=== PATIENT | female | born 1985 | race Caucasian/White ===

== ENCOUNTER 2021-10-25 14:56 | Emergency (ER) | payer BC ==
[2021-10-25 15:40] VITALS: TEMP 97.7
--- NOTE | 2021-10-25 16:12 | ED ---
General Adult HPI - General Chief complaint: Psychiatric Symptoms Stated complaint: Mental health eval Time Seen by Provider: 10/25/21 15:20 Source: patient, RN notes reviewed, old records reviewed Mode of arrival: ambulatory Limitations: no limitations - History of Present Illness Initial comments: This is a 36-year-old female who has been in multiple psychiatric facilities and ERs over the last month and a half. Approximately one half months ago the patient was having what appeared to be some manic episodes as well as some [place] interval is episodes so she was taken to Hospital in [place] and then she was put on some medications. Patient also has been to multiple ER visits now in [place] and was at one of the local psychiatric facilities and was put on another set of medications there and when that she went home she wasn't tolerating her Depakote so she stopped taking it and since then the family is taking her to [facility] and they wanted her to start taking some other medications which have yet to be ectopic by family. Family states that she is having these episodes of junaid where she is shaking and feels like she is crawling out of her skin and got to the point where they thought she needed to be evaluated again said get some consistent treatment. Patient has no physical complaints today. Patient was on Haldol up until yesterday and she did complain of feeling like her insides were all agitated and she couldn't stop it from feeling shaky. - Related Data Allergies Allergy/AdvReac Type Severity Reaction Status Date / Time No Known Allergies Allergy Verified 10/25/21 15:22 Review of Systems ROS Statement: Those systems with pertinent positive or pertinent negative responses have been documented in the HPI. ROS Other: All systems not noted in ROS Statement are negative. Past Medical History Past Medical History: No Reported History History of Any Multi-Drug Resistant Organisms: None Reported Past Surgical History: Hysterectomy Past Psychological History: Bipolar, Panic Disorder, PTSD Smoking Status: Current every day smoker Past Alcohol Use History: Daily Past Drug Use History: None Reported General Exam - General Exam Comments Initial Comments: GENERAL: Patient is well-developed and well-nourished. Patient is nontoxic and well- hydrated and is in no acute distress. ENT: Neck is soft and supple. No significant lymphadenopathy is noted. Oropharynx is clear. Moist mucous membranes. Neck has full range of motion without eliciting any pain. EYES: The sclera were anicteric and conjunctiva were pink and moist. Extraocular movements were intact and pupils were equal round and reactive to light. Eyelids were unremarkable. PULMONARY: Unlabored respirations. Good breath sounds bilaterally. No audible rales rhonchi or wheezing was noted. CARDIOVASCULAR: There is a regular rate and rhythm without any murmurs gallops or rubs. ABDOMEN: Soft and nontender with normal bowel sounds. SKIN: Skin is clear with no lesions or rashes and otherwise unremarkable. NEUROLOGIC: Patient is alert and oriented x3. Cranial nerves II through XII are grossly intact. Motor and sensory are also intact. Normal speech, volume and content. Symmetrical smile. MUSCULOSKELETAL: Normal extremities with adequate strength and full range of motion. No lower extremity swelling or edema. No calf tenderness. LYMPHATICS: No significant lymphadenopathy is noted PSYCHIATRIC: Normal psychiatric evaluation. She currently feels very calm and has no paranoid thoughts at this time. Limitations: no limitations Course Vital Signs 10/25/21 15:18 Temperature 97.7 F Pulse Rate 111 H Respiratory 20 Rate Blood Pressure 113/79 O2 Sat by Pulse 99 Oximetry Medical Decision Making - Medical Decision Making EPS came down to evaluate the patient and determined the patient could follow-up with her own psychiatrist for which she already has an appointment. Patient herself or family did not tell me she was transferred male taking a variety of hormones in an effort to become male. - Lab Data Lab Results 10/25/21 Range/Units 16:39 Urine Opiates Screen Not Detected (NotDetected) Ur Oxycodone Screen Not Detected (NotDetected) Urine Methadone Screen Not Detected (NotDetected) Ur Propoxyphene Screen Not Detected (NotDetected) Ur Barbiturates Screen Not Detected (NotDetected) U Tricyclic Antidepress Not Detected (NotDetected) Ur Phencyclidine Scrn Not Detected (NotDetected) Ur Amphetamines Screen Not Detected (NotDetected) U Methamphetamines Scrn Not Detected (NotDetected) U Benzodiazepines Scrn Detected H (NotDetected) Urine Cocaine Screen Not Detected (NotDetected) U Marijuana (THC) Screen Not Detected (NotDetected) Disposition Clinical Impression: Psychosis Disposition: HOME SELF-CARE Instructions (If sedation given, give patient instructions): Psychotic Disorder (ED) Is patient prescribed a controlled substance at d/c from ED?: No Referrals: Nonstaff,Physician [Primary Care Provider] - 1-2 days Time of Disposition: 18:00
[2021-10-25 17:01] LABS: Amphetamine Screen,Urine Not Detected (NotDetected); Barbiturate Screen,Urine Not Detected (NotDetected); Benzodiazepines Screen,Urine Detected (NotDetected); Cocaine Screen,Urine Not Detected (NotDetected); Methadone Screen, Urine Not Detected (NotDetected); Opiate Screen,Urine Not Detected (NotDetected); Oxycodone Screen, Urine Not Detected (NotDetected); Phencyclidine Screen,Urine Not Detected (NotDetected); Tricyclic Antidepressant,Urine Not Detected (NotDetected); Urn Cannabinoid Scrn Not Detected (NotDetected)
[2021-10-25 18:44] VITALS: BP 115/80; PULSE 90; RESP 18
== END 2021-10-25 18:46 | disposition home or self-care (01) ==
LOC: EC 14:56
DX: F29 Unspecified psychosis not due to a substance or known physiological condition (principal); F17.200 Nicotine dependence, unspecified, uncomplicated
CPT/HCPCS: 80306; 82075; 99284

== ENCOUNTER → 2021-11-08 | Outpatient (CLI) | payer BC ==
--- NOTE | 2021-11-08 14:12 | MM ---
Reason for Exam: Clinical finding. Baseline mammogram. Indicated Problems: Large axillary lymph nodes of the right side for 2 Year(s). Patient History: Menarche at age 14. Patient has no children. Left ovary removed at age 34. Right ovary removed at age 26. Hysterectomy at age 34. Postmenopausal. Currently using Estrogen, starting at age 34. Risk Values: Sharmila 5 year model risk: 0.3%. NCI Lifetime model risk: 11.3%. Prior Study Comparison: Patient's first Mammogram. Tissue Density: The breast tissue is extremely dense which could obscure a lesion on mammography. Findings: Analyzed By CAD. Prominent but benign-appearing bilateral axillary lymph nodes are partially imaged. No suspicious new mass or distortion in either breast. Overall Assessment: Negative, BI-RAD 1 Management: Diagnostic Breast Ultrasound of both breasts. Targeted ultrasound bilateral axilla has been ordered. Results were given to the patient verbally at the time of exam. Electronically signed and approved by: Andrew Robertson M.D.
== END | disposition home or self-care (01) ==
LOC: RADMAMWWP 13:12
DX: R92.8 Other abnormal and inconclusive findings on diagnostic imaging of breast (principal); Z78.0 Asymptomatic menopausal state
CPT/HCPCS: 77066

== ENCOUNTER 2021-11-09 19:33 | Inpatient (IN) | payer BC ==
--- NOTE | 2021-11-09 20:14 | ED ---
General Adult HPI - General Source: patient, RN notes reviewed, old records reviewed Mode of arrival: ambulatory Limitations: no limitations <Ryan Varela - Last Filed: 11/09/21 20:11> <Romain Thakur - Last Filed: 11/09/21 23:43> - General Chief complaint: Psychiatric Symptoms Stated complaint: Mental Health Time Seen by Provider: 11/09/21 19:56 - History of Present Illness Initial comments: 36-year-old female presenting for psychiatric evaluation. Patient has history of bipolar with psychotic features. She apparently has not been sleeping over the past 4 days. She had recent psychiatric evaluation. She is presenting today with her family members who state that she's not been sleeping she has been paranoid. She denies suicidal or homicidal ideation. She does admit to marijuana use today and admits to recent use of mushrooms although this was about 2 weeks prior. (Ryan Varela) - Related Data Allergies Allergy/AdvReac Type Severity Reaction Status Date / Time No Known Allergies Allergy Verified 11/09/21 20:32 Review of Systems ROS Other: All systems not noted in ROS Statement are negative. <Ryan Varela - Last Filed: 11/09/21 20:11> ROS Other: All systems not noted in ROS Statement are negative. <Romain Thakur - Last Filed: 11/09/21 23:43> ROS Statement: Those systems with pertinent positive or pertinent negative responses have been documented in the HPI. Past Medical History Past Medical History: No Reported History History of Any Multi-Drug Resistant Organisms: None Reported Past Surgical History: Hysterectomy Additional Past Surgical History / Comment(s): hormone replacement Past Psychological History: Bipolar, Panic Disorder, PTSD Smoking Status: Current every day smoker Past Alcohol Use History: Daily Past Drug Use History: Marijuana <Ryan Varela - Last Filed: 11/09/21 20:11> General Exam Limitations: no limitations General appearance: alert, in no apparent distress, anxious Head exam: Present: atraumatic, normocephalic Eye exam: Present: normal appearance, PERRL ENT exam: Present: mucous membranes dry Respiratory exam: Present: normal lung sounds bilaterally. Absent: respiratory distress, wheezes Cardiovascular Exam: Present: regular rate, normal rhythm GI/Abdominal exam: Present: soft. Absent: distended, tenderness, guarding Extremities exam: Present: normal inspection, normal capillary refill. Absent: pedal edema Neurological exam: Present: alert, oriented X3. Absent: motor sensory deficit Psychiatric exam: Absent: homicidal ideation, suicidal ideation Skin exam: Present: warm, dry, intact <Ryan Varela - Last Filed: 11/09/21 20:11> Course <Ryan Varela - Last Filed: 11/09/21 20:11> Vital Signs 11/09/21 19:50 Temperature 98.4 F Pulse Rate 97 Respiratory 17 Rate Blood Pressure 112/79 O2 Sat by Pulse 100 Oximetry - Reevaluation(s) Reevaluation #1: 11/09/21 20:12 Patient cleared for EPS. (Ryan Varela) Reevaluation #2: 11/09/21 2100 Care signed out at shift change, Dr. Thakur , awaiting EPS evaluation. (Ryan Varela) Medical Decision Making - Lab Data Result diagrams: 11/09/21 22:18 11/09/21 22:18 <Romain Thakur - Last Filed: 11/09/21 23:43> - Medical Decision Making Patient is signed out to me by previous shift physician, Dr. Monte. Briefly, patient 36-year-old female showing signs of psychosis per she is brought to the ER for mental health evaluation. Patient was cleared by previous shift physician. Plan at sign out was to follow-up with EPS evaluation. EPS recommended inpatient psychiatric admission. Certification completed. Patient be admitted to [address]. (Romain Thakur) - Lab Data Lab Results 11/09/21 11/09/21 11/09/21 Range/Units 22:18 22:18 22:18 WBC 10.4 (3.8-10.6) k/uL RBC 3.97 (3.80-5.40) m/uL Hgb 12.3 (11.4-16.0) gm/dL Hct 37.1 (34.0-46.0) % MCV 93.4 (80.0-100.0) fL MCH 30.9 (25.0-35.0) pg MCHC 33.0 (31.0-37.0) g/dL RDW 12.8 (11.5-15.5) % Plt Count 206 (150-450) k/uL MPV 8.6 Neutrophils % 77 % Lymphocytes % 16 % Monocytes % 5 % Eosinophils % 0 % Basophils % 0 % Neutrophils # 8.0 H (1.3-7.7) k/uL Lymphocytes # 1.6 (1.0-4.8) k/uL Monocytes # 0.5 (0-1.0) k/uL Eosinophils # 0.0 (0-0.7) k/uL Basophils # 0.0 (0-0.2) k/uL Sodium 138 (137-145) mmol/L Potassium 3.5 (3.5-5.1) mmol/L Chloride 107 (98-107) mmol/L Carbon Dioxide 26 (22-30) mmol/L Anion Gap 5 mmol/L BUN 8 (7-17) mg/dL Creatinine 0.68 (0.52-1.04) mg/dL Est GFR (CKD-EPI)AfAm >90 (>60 ml/min/1.73 sqM) Est GFR (CKD-EPI)NonAf >90 (>60 ml/min/1.73 sqM) Glucose 112 H (74-99) mg/dL Calcium 9.8 (8.4-10.2) mg/dL Total Bilirubin 0.4 (0.2-1.3) mg/dL AST 17 (14-36) U/L ALT 11 (4-34) U/L Alkaline Phosphatase 41 (38-126) U/L Total Protein 6.4 (6.3-8.2) g/dL Albumin 4.2 (3.5-5.0) g/dL Urine Color Urine Appearance (Clear) Urine pH (5.0-8.0) Ur Specific [place] (1.001-1.035) Urine Protein (Negative) Urine Glucose (UA) (Negative) Urine Ketones (Negative) Urine Blood (Negative) Urine Nitrite (Negative) Urine Bilirubin (Negative) Urine Urobilinogen (<2.0) mg/dL Ur Leukocyte Esterase (Negative) Urine HCG, Qual (Not Detectd) Urine Opiates Screen Not Detected (NotDetected) Ur Oxycodone Screen Not Detected (NotDetected) Urine Methadone Screen Not Detected (NotDetected) Ur Propoxyphene Screen Not Detected (NotDetected) Ur Barbiturates Screen Not Detected (NotDetected) U Tricyclic Antidepress Not Detected (NotDetected) Ur Phencyclidine Scrn Not Detected (NotDetected) Ur Amphetamines Screen Not Detected (NotDetected) U Methamphetamines Scrn Not Detected (NotDetected) U Benzodiazepines Scrn Detected H (NotDetected) Urine Cocaine Screen Not Detected (NotDetected) U Marijuana (THC) Screen Not Detected (NotDetected) 11/09/21 11/09/21 Range/Units 22:18 22:18 WBC (3.8-10.6) k/uL RBC (3.80-5.40) m/uL Hgb (11.4-16.0) gm/dL Hct (34.0-46.0) % MCV (80.0-100.0) fL MCH (25.0-35.0) pg MCHC (31.0-37.0) g/dL RDW (11.5-15.5) % Plt Count (150-450) k/uL MPV Neutrophils % % Lymphocytes % % Monocytes % % Eosinophils % % Basophils % % Neutrophils # (1.3-7.7) k/uL Lymphocytes # (1.0-4.8) k/uL Monocytes # (0-1.0) k/uL Eosinophils # (0-0.7) k/uL Basophils # (0-0.2) k/uL Sodium (137-145) mmol/L Potassium (3.5-5.1) mmol/L Chloride (98-107) mmol/L Carbon Dioxide (22-30) mmol/L Anion Gap mmol/L BUN (7-17) mg/dL Creatinine (0.52-1.04) mg/dL Est GFR (CKD-EPI)AfAm (>60 ml/min/1.73 sqM) Est GFR (CKD-EPI)NonAf (>60 ml/min/1.73 sqM) Glucose (74-99) mg/dL Calcium (8.4-10.2) mg/dL Total Bilirubin (0.2-1.3) mg/dL AST (14-36) U/L ALT (4-34) U/L Alkaline Phosphatase (38-126) U/L Total Protein (6.3-8.2) g/dL Albumin (3.5-5.0) g/dL Urine Color Colorless Urine Appearance Clear (Clear) Urine pH 6.0 (5.0-8.0) Ur Specific [place] 1.004 (1.001-1.035) Urine Protein Negative (Negative) Urine Glucose (UA) Negative (Negative) Urine Ketones Negative (Negative) Urine Blood Negative (Negative) Urine Nitrite Negative (Negative) Urine Bilirubin Negative (Negative) Urine Urobilinogen <2.0 (<2.0) mg/dL Ur Leukocyte Esterase Negative (Negative) Urine HCG, Qual Not Detected (Not Detectd) Urine Opiates Screen (NotDetected) Ur Oxycodone Screen (NotDetected) Urine Methadone Screen (NotDetected) Ur Propoxyphene Screen (NotDetected) Ur Barbiturates Screen (NotDetected) U Tricyclic Antidepress (NotDetected) Ur Phencyclidine Scrn (NotDetected) Ur Amphetamines Screen (NotDetected) U Methamphetamines Scrn (NotDetected) U Benzodiazepines Scrn (NotDetected) Urine Cocaine Screen (NotDetected) U Marijuana (THC) Screen (NotDetected) Disposition <Ryan Varela - Last Filed: 11/09/21 20:11> <Romain Thakur - Last Filed: 11/09/21 23:43> Clinical Impression: Psychosis Disposition: ADMITTED IP TO THIS [facility] Condition: Fair Referrals: None,Stated [Primary Care Provider] - 1-2 days
[2021-11-09] MEDS ORDERED: IBUPROFEN 600 MG TAB PO STA (20:27)
[2021-11-09] MEDS ORDERED: LORazepam 2 MG/ML INJ IM STA (22:21)
[2021-11-09 23:03] LABS: Appearance,Urine Clear (Clear); Bilirubin,Urine Negative (Negative); Blood,Urine Negative (Negative); Color,Urine Colorless; Glucose,Urine (UA) Negative (Negative); Ketones,Urine Negative (Negative); Leukocyte Esterase,Urine Negative (Negative); Nitrite,Urine Negative (Negative); Protein,Urine Negative (Negative); Specific Gravity,Urine 1.004 (1.001-1.035); Urobilinogen,Urine <2.0 mg/dL (<2.0)
[2021-11-09 23:17] LABS: Basophils % (A) 0 %; Eosinophils % (A) 0 %; HCT 37.1 % (34.0-46.0); HGB 12.3 gm/dL (11.4-16.0); Lymphocytes # (A) 1.6 k/uL (1.0-4.8); Lymphocytes % (A) 16 %; MCH 30.9 pg (25.0-35.0); MCV 93.4 fL (80.0-100.0); Mean Platelet Volume 8.6; Monocytes # (A) 0.5 k/uL (0-1.0); Monocytes % (A) 5 %; Neutrophils % (A) 77 %; Platelet Count 206 k/uL (150-450); RBC 3.97 m/uL (3.80-5.40); RDW 12.8 % (11.5-15.5); WBC 10.4 k/uL (3.8-10.6)
[2021-11-09 23:19] LABS: Amphetamine Screen,Urine Not Detected (NotDetected); Cocaine Screen,Urine Not Detected (NotDetected); Opiate Screen,Urine Not Detected (NotDetected); Phencyclidine Screen,Urine Not Detected (NotDetected)
[2021-11-09 23:20] LABS: Barbiturate Screen,Urine Not Detected (NotDetected); Benzodiazepines Screen,Urine Detected (NotDetected); Methadone Screen, Urine Not Detected (NotDetected); Oxycodone Screen, Urine Not Detected (NotDetected); Tricyclic Antidepressant,Urine Not Detected (NotDetected); Urn Cannabinoid Scrn Not Detected (NotDetected)
[2021-11-09 23:27] LABS: ALT 11 U/L (4-34); AST 17 U/L (14-36); African American GFR (CKD) >90 (>60 ml/min/1.73 sqM); Albumin 4.2 g/dL (3.5-5.0); Alkaline Phosphatase 41 U/L (38-126); Anion Gap 5 mmol/L; Blood Urea Nitrogen 8 mg/dL (7-17); Calcium 9.8 mg/dL (8.4-10.2); Carbon Dioxide 26 mmol/L (22-30); Chloride 107 mmol/L (98-107); Glucose 112 mg/dL (74-99); Non-African American GFR(CKD) >90 (>60 ml/min/1.73 sqM); Potassium 3.5 mmol/L (3.5-5.1); Sodium 138 mmol/L (137-145); Total Bilirubin 0.4 mg/dL (0.2-1.3); Total Protein 6.4 g/dL (6.3-8.2)
[2021-11-10] MEDS ORDERED: MAG HYDROX/AL HYDROX/SIMETH 30 ML CUP PO PRN (00:26)
[2021-11-10] MEDS ORDERED: LORazepam 1 MG TAB PO PRN (00:26)
[2021-11-10] MEDS ORDERED: HALOPERIDOL LACTATE 5 MG/ML 1 ML VIAL IM PRN (00:26)
[2021-11-10] MEDS ORDERED: MAGNESIUM HYDROXIDE 2,400 MG/10 ML CUP PO PRN (00:26)
[2021-11-10] MEDS ORDERED: LORazepam 2 MG/ML INJ IM PRN (00:30)
[2021-11-10] MEDS ORDERED: haloperidoL 5 MG TAB PO PRN (00:31)
[2021-11-10] MEDS: ACETAMINOPHEN TAB 325 MG TAB PO PRN ×2 (02:39→23:40)
--- NOTE | 2021-11-10 02:59 | P.PN ---
Progress Note - Text Progress Note Date: 11/10/21 Patient is aggressive and uncooperative
--- NOTE | 2021-11-10 03:11 | XR ---
EXAMINATION TYPE: XR elbow limited RT DATE OF EXAM: 11/10/2021 COMPARISON: NONE HISTORY: Fall. Pain TECHNIQUE: 2 views FINDINGS: Elbow joint is intact. No fracture nor dislocation. There is no sign of joint effusion. IMPRESSION: Negative right elbow exam
--- NOTE | 2021-11-10 03:12 | XR ---
EXAMINATION TYPE: XR knee limited LT DATE OF EXAM: 11/10/2021 COMPARISON: NONE HISTORY: Fall. Pain TECHNIQUE: 2 views FINDINGS: I see no fracture nor dislocation. Joint spaces are normal. No sign of knee joint effusion. IMPRESSION: Negative left knee exam.
[2021-11-10] MEDS ORDERED: LEVOTHYROXINE SODIUM 137 MCG PO SCH (09:00)
[2021-11-10 11:11] LABS: HDL Cholesterol 58.3 mg/dL (40.00-60.00); Triglycerides 39.4 mg/dL (0.00-149.00)
[2021-11-10] MEDS: LEVOTHYROXINE 137 MCG TAB PO SCH (12:46)
[2021-11-10] MEDS: lamoTRIgine 25 MG TAB PO SCH (12:46)
[2021-11-10] MEDS: NICOTINE 14MG/24HR PATCH TRANSDERM SCH (12:47)
[2021-11-10 17:40] LABS: Urine Alcohol Negative (Negative); Urine Barbiturate Negative (Negative); Urine Cocaine Negative (Negative); Urine Methadone Negative (Negative); Urine Opiates Negative (Negative); Urine Phencyclidine Negative (Negative)
[2021-11-10] MEDS ORDERED: traZODone HCL 50 MG TAB PO PRN (19:43)
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
[2021-11-10] MEDS ORDERED: QUEtiapine 50 MG TAB PO SCH (21:00)
[2021-11-10] MEDS ORDERED: ESCITALOPRAM 10 MG TAB PO SCH (21:00)
[2021-11-10] MEDS ORDERED: traZODone HCL 50 MG TAB PO SCH (21:00)
[2021-11-11 06:51] VITALS: TEMP 98.1
[2021-11-11] MEDS: lamoTRIgine 25 MG TAB PO SCH (08:04)
[2021-11-11] MEDS: LEVOTHYROXINE 137 MCG TAB PO SCH (08:04)
[2021-11-11] MEDS: NICOTINE 14MG/24HR PATCH TRANSDERM SCH (08:04)
[2021-11-11] MEDS ORDERED: LORazepam 2 MG/ML INJ IM STA ×3 (10:10→10:24)
[2021-11-11] MEDS ORDERED: LORazepam 2 MG/ML INJ ONE ×2 (10:12→10:22)
[2021-11-11] MEDS ORDERED: HALOPERIDOL LACTATE 5 MG/ML 1 ML VIAL ONE (10:31)
[2021-11-11] MEDS ORDERED: HALOPERIDOL LACTATE 5 MG/ML 1 ML VIAL IM STA (10:35)
[2021-11-11 11:05] VITALS: BP 138/89; PULSE 109; RESP 18
[2021-11-11 14:27] LABS: Thyroid Peroxidase Antibodies 50.8 U/mL (0.0-33.0)
--- NOTE | 2021-11-11 17:25 | P.DS ---
Providers Date of admission: 11/10/21 00:23 Expected date of discharge: 11/11/21 Attending physician: Glynn Gar MD Consults: 11/10/21 00:26 Consult Physician Routine Consulting Provider: Effie Diaz Consult Reason/Comments: H&P for mental health admission. Do you want consulting provider notified?: Yes Primary care physician: Stated None Hospital Course: Hospital Course: Jeff Ramon is a 36 yo female with history of depression, anxiety, bipolar, psychosis, and Katja's thyroiditis who was admitted to the MHU due to psychosis. Patient reports no prior psychiatric hospitalizations until September 2021 when she started having symptoms of junaid and psychosis, and has been admitted to inpatient psychiatry multiple times since September 2021. The history she provided on admission was consistent with major depressive disorder with concern for psychotic features and generalized anxiety disorder, and she was started on Lexapro 10 mg daily which she reports having well done on previously and also Seroquel 50 mg QHS for mood/psychosis/sleep. She was continued on her home Lamictal 25 mg daily. Anti-TPO and anti-thyroglobulin labs were added onto her labs this morning by calling the lab directly due to her history of Katja's. On assessment today, patient reports feeling warm, flushed, lightheaded, reported feeling like she may be having a "thyroid storm", began rambling including some paranoid thought content, laid herself on the floor where she had shaking spells. She was given Ativan 1 mg IM x1 with minimal benefit. A-team and medical doctor were called, and patient was moved to a stretcher where she appeared to have another shaking spell and was given another dose of Ativan 1 mg IM x 1. She continued to thrash in the stretcher and was given Haldol 5 mg IM x 1. She was transferred to the medical floor for evaluation of possible seizures and rule out underlying medical cause for her psychosis (ie Katja's). Mental status exam: General Appearance: Patient appears to be stated age, is dressed in casual attire, appears warm, flushed, anxious. Behavior: Patient laid herself on the floor where she had several shaking spells. Speech: Patient's speech is rambling but non-pressured. Mood/Affect: Patient reports mood is "anxious", affect is congruent. Suicidality/Homicidality: Patient denies having any suicidal or homicidal tiffany ation intent or plan. Perceptions: Patient reports auditory and visual hallucinations today, which she denied yesterday. Though process: Rambling Thought content: Making inappropriate sexual comments at times, rambling concerns about brain tumor and brain bleed. Memory and concentration: AOX3, grossly intact Judgment and insight: impaired Impression: Unspecified mood disorder, MDD vs Bipolar disorder Unspecified psychotic disorder, rule out psychosis due to underlying medical condition (ie Katja's) Unspecified anxiety disorder Rule out personality disorder Shaking spells Plan: -Patient transferred to medical floor for neurological evaluation and treatment of shaking spells and possible underlying medical cause of psychosis and mood symptoms. -Head CT and EEG would be helpful in ruling out structural/medical causes of her symptoms. -Anti-TPO and Anti-thyroglobulin levels were requested from the lab today and are pending. -Hold Lexapro and Seroquel (started last night) for now. Need for psychotropic medications will be re-evaluated once more test results are available. -Haldol and Ativan as needed for agitation. -Initiate sitter at bedside if safety concerns arise. -Psychiatry will continue to follow along. -Please do not discharge patient without further discussion with psychiatry since patient may require re-admission to the mental health unit when medically stable and a psychiatric bed is available. Patient Condition at Discharge: Poor Plan - Discharge Summary New Discharge Prescriptions: No Action lamoTRIgine [LaMICtal] 25 mg PO DAILY LORazepam [Ativan] 0.25 mg PO ONCE PRN PRN Reason: Anxiety estradioL [estradioL (Once Weekly) 0.05 mg Patch] 1 patch TRANSDERM SA Testosterone Micro Pwd 1 applic TOPICAL DAILY Ibuprofen [Motrin Ib] 200 mg PO Q8H PRN PRN Reason: Pain Or Fever > 100.5 traZODone HCL [Desyrel] 100 mg PO HS Levothyroxine Sodium [Tirosint] 137 mcg PO DAILY ALPRAZolam [Xanax] 0.25 mg PO DAILY PRN PRN Reason: Anxiety Discharge Medication List ALPRAZolam [Xanax] 0.25 mg PO DAILY PRN 11/09/21 [History] Ibuprofen [Motrin Ib] 200 mg PO Q8H PRN 11/09/21 [History] LORazepam [Ativan] 0.25 mg PO ONCE PRN 11/09/21 [History] Levothyroxine Sodium [Tirosint] 137 mcg PO DAILY 11/09/21 [History] Testosterone Micro Pwd 1 applic TOPICAL DAILY 11/09/21 [History] estradioL [estradioL (Once Weekly) 0.05 mg Patch] 1 patch TRANSDERM SA 11/09/21 [History] lamoTRIgine [LaMICtal] 25 mg PO DAILY 11/09/21 [History] traZODone HCL [Desyrel] 100 mg PO HS 11/09/21 [History] Follow up Appointment(s)/Referral(s): None,Stated [Primary Care Provider] - 1-2 days Activity/Diet/Wound Care/Special Instructions: Avoid the use of street drugs and alcohol. Take all prescriptions as prescribed. When you are in need of refills on your medications, please contact your medical provider and/or outpatient psychiatrist to have this done. Please go to scheduled outpatient appointment for aftercare treatment. If symptoms return or become worse, call the crisis line at and/or go to the nearest emergency room for evaluation. Discharge Disposition: ADMITTED IP TO THIS HOSP
[2021-11-16] MEDS ORDERED: ESTRADIOL TRANSDERM SCH (00:32)
== END 2021-11-11 10:38 | disposition other institution (70) | DRG 885 ==
LOC: EC 19:33 → 3MHU 11-10 00:23
PROVIDERS: ADMIT Psychiatry & Neurology Psychiatry; ATTEND Psychiatry & Neurology Psychiatry
DX: F29 Unspecified psychosis not due to a substance or known physiological condition (principal); R45.851 Suicidal ideations; E06.3 Autoimmune thyroiditis; F17.210 Nicotine dependence, cigarettes, uncomplicated; F31.9 Bipolar disorder, unspecified; F41.0 Panic disorder [episodic paroxysmal anxiety]; F41.1 Generalized anxiety disorder; F43.10 Post-traumatic stress disorder, unspecified; N95.1 Menopausal and female climacteric states; Z79.890 Hormone replacement therapy; Z79.899 Other long term (current) drug therapy; Z86.16 Personal history of COVID-19; Z90.710 Acquired absence of both cervix and uterus
CPT/HCPCS: 36415; 80053; 80061; 80306; 81003; 81025; 83036; 83721; 84443; 85025; 86376; 86800; 87635; 96372; 99285

== ENCOUNTER 2021-11-11 10:55 | Inpatient (IN) | payer BC ==
[2021-11-11] MEDS ORDERED: ACETAMINOPHEN TAB 325 MG TAB PO PRN (11:00)
[2021-11-11] MEDS ORDERED: MELATONIN 3 MG TABLET PO PRN (11:00)
[2021-11-11] MEDS ORDERED: NALOXONE 0.4 MG/ML 1 ML VIAL IV PRN (11:00)
[2021-11-11] MEDS ORDERED: LORazepam 2 MG/ML INJ IV PRN (11:00)
[2021-11-11] MEDS ORDERED: CALCIUM CARBONATE 500 MG CHEWABLE PO PRN (11:00)
[2021-11-11] MEDS ORDERED: ONDANSETRON 4 MG/2 ML VIAL IVP PRN (11:00)
[2021-11-11] MEDS ORDERED: HALOPERIDOL LACTATE 5 MG/ML 1 ML VIAL IVP PRN (11:10)
--- NOTE | 2021-11-11 12:50 | P.HPIM ---
History of Present Illness H&P Date: 11/11/21 Chief Complaint: Agitations 36-year-old female with major depressive disorder, bipolar, anxiety, tobacco use who was initially admitted to the mental health unit on 11/10/2021 secondary to aggressive behavior. Today 11/11/2021 a rapid response was called on the mental health unit as the patient was having a seizure-like activity. I was the covering provider for cross cover. I evaluated the patient and the mental health unit. The patient was awake and oriented and she knew where she was. She was having uncontrolled body movements and shaking activity every several minutes but she was fully awake and oriented with them. She had 2 doses of 1 mg IV Ativan a total of 2 mg was given IM. Then she started to have another episode of shaking again she was fully awake during the episode. She was given 1 dose of Haldol injection 5 mg IM. The patient was resting after that. The nursing staff requested for the patient to be moved out of the mental health unit due to medical instability. She was moved. Her vital signs were normal. She was oxygenating very well as she was protecting her airways and she did not require intubation. The patient will be seen by medical team and neurology until cleared medically to go back to the mental health unit. Review of Systems Constitutional: Reports as per HPI Past Medical History Past Medical History: No Reported History Additional Past Medical History / Comment(s): Anxiety, major depression. Bipolar disorder. Thyroid disorder. Tobacco use disorder History of Any Multi-Drug Resistant Organisms: None Reported Past Surgical History: Hysterectomy Additional Past Surgical History / Comment(s): hormone replacement Past Anesthesia/Blood Transfusion Reactions: No Reported Reaction Past Psychological History: Bipolar, Panic Disorder, PTSD Smoking Status: Current every day smoker Past Alcohol Use History: Daily Past Drug Use History: Marijuana Medications and Allergies Home Medications Medication Instructions Recorded Confirmed Type ALPRAZolam [Xanax] 0.25 mg PO DAILY PRN 11/09/21 11/11/21 History Ibuprofen [Motrin Ib] 200 mg PO Q8H PRN 11/09/21 11/11/21 History LORazepam [Ativan] 0.25 mg PO ONCE PRN 11/09/21 11/11/21 History Levothyroxine Sodium [Tirosint] 137 mcg PO DAILY 11/09/21 11/11/21 History Testosterone Micro Pwd 1 applic TOPICAL DAILY 11/09/21 11/11/21 History estradioL [estradioL (Once Weekly) 1 patch TRANSDERM SA 11/09/21 11/11/21 History 0.05 mg Patch] lamoTRIgine [LaMICtal] 25 mg PO DAILY 11/09/21 11/11/21 History traZODone HCL [Desyrel] 100 mg PO HS 11/09/21 11/11/21 History Allergies Allergy/AdvReac Type Severity Reaction Status Date / Time No Known Allergies Allergy Verified 11/11/21 11:56 Physical Exam Vitals: Vital Signs Pulse Ox 11/11/21 11:00 95 Intake and Output 11/10/21 11/11/21 11/11/21 22:59 06:59 14:59 Other: Weight 59.874 kg Physical examination was limited. It was done during the rapid response. Many of nursing staff was present during examination. The patient was alert and oriented 4. She was severely anxious. She was having shaking episodes but she was fully alert and oriented during the episodes. The patient did not have any apparent labored breathing. No focal neurological deficit noted. Her heart and lung exam was unremarkable. Her abdomen was soft and not distended. She does not have any thyroid enlargement. Thrombosis Risk Factor Assmnt - Choose All That Apply Any of the Below Risk Factors Present?: No Assessment and Plan Assessment: 36-year-old female with bipolar, depression, anxiety, hypothyroidism, tobacco use who was transferred from the mental health unit secondary to seizure-like activity Excessive body shakings Agitation Seizure-like activity. Doubt epilepsy however we will order EEG and CT brain. Neurology consulted. Neuro checks every shift. Vital signs checks per protocol. Continue to monitor. Hypothyroidism, sent stable. The incision looks normal. Continue thyroid replacement therapy. Psychiatrist requested further workup for thyroid gland function. We will order specific testing for Katja thyroiditis. Nicotine dependence. The patient was encouraged to quit smoking. Can have nicotine patches as needed Mood disorders, bipolar, anxiety Continue patient's home cervical 200 mg at night. Also she is on lamotrigine 25 mg daily. Continue that. DVT prophylaxis, compression device disposition: Pending medical stability
--- NOTE | 2021-11-11 13:29 | P.DS ---
Providers Date of admission: 11/11/21 10:55 Expected date of discharge: 11/11/21 Attending physician: Radha Adam MD Consults: 11/11/21 11:04 Consult Physician Routine Consulting Provider: David Valderrama Consult Reason/Comments: Seizure Do you want consulting provider notified?: Yes 11/11/21 11:11 Consult Physician Routine Consulting Provider: Psychiatry - [facility]ry Consult Reason/Comments: psychosis Do you want consulting provider notified?: Yes Primary care physician: Stated None Hospital Course: Jeff Ramon is a 36 yo female with history of depression, anxiety, bipolar, psychosis, and Katja's thyroiditis who was admitted to the MHU due to psychosis. Patient reports no prior psychiatric hospitalizations until September 2021 when she started having symptoms of junaid and psychosis, and has been admitted to inpatient psychiatry multiple times since September 2021. The history she provided on admission was consistent with major depressive disorder with concern for psychotic features and generalized anxiety disorder, and she was started on Lexapro 10 mg daily which she reports having well done on previously and also Seroquel 50 mg QHS for mood/psychosis/sleep. She was continued on her home Lamictal 25 mg daily. Anti-TPO and anti-thyroglobulin labs were added onto her labs this morning by calling the lab directly due to her history of Katja's. On assessment today, patient reports feeling warm, flushed, lightheaded, reported feeling like she may be having a "thyroid storm", began rambling including some paranoid thought content, laid herself on the floor where she had shaking spells. She was given Ativan 1 mg IM x1 with minimal benefit. A-team and medical doctor were called, and patient was moved to a stretcher where she appeared to have another shaking spell and was given another dose of Ativan 1 mg IM x 1. She continued to thrash in the stretcher and was given Haldol 5 mg IM x 1. She was transferred to the medical floor for evaluation of possible seizures and rule out underlying medical cause for her psychosis (ie Katja's). Mental status exam: General Appearance: Patient appears to be stated age, is dressed in casual attire, appears warm, flushed, anxious. Behavior: Patient laid herself on the floor where she had several shaking spells. Speech: Patient's speech is rambling but non-pressured. Mood/Affect: Patient reports mood is "anxious", affect is congruent. Suicidality/Homicidality: Patient denies having any suicidal or homicidal ideation intent or plan. Perceptions: Patient reports auditory and visual hallucinations today, which she denied yesterday. Though process: Rambling Thought content: Making inappropriate sexual comments at times, rambling concerns about brain tumor and brain bleed. Memory and concentration: AOX3, grossly intact Judgment and insight: impaired Impression: Unspecified mood disorder, MDD vs Bipolar disorder Unspecified psychotic disorder, rule out psychosis due to underlying medical condition (ie Katja's) Unspecified anxiety disorder Rule out personality disorder Shaking spells Plan: -Patient transferred to medical floor for neurological evaluation and treatment of shaking spells and possible underlying medical cause of psychosis and mood symptoms. -Head CT and EEG would be helpful in ruling out structural/medical causes of her symptoms. -Anti-TPO and Anti-thyroglobulin levels were requested from the lab today and are pending. -Hold Lexapro and Seroquel (started last night) for now. Need for psychotropic medications will be re-evaluated once more test results are available. -Haldol and Ativan as needed for agitation. -Initiate sitter at bedside if safety concerns arise. -Psychiatry will continue to follow along. -Please do not discharge patient without further discussion with psychiatry since patient may require re-admission to the mental health unit when medically stable and a psychiatric bed is available. Patient Condition at Discharge: Poor Plan - Discharge Summary Discharge Rx Participant: No New Discharge Prescriptions: No Action lamoTRIgine [LaMICtal] 25 mg PO DAILY LORazepam [Ativan] 0.25 mg PO ONCE PRN PRN Reason: Anxiety estradioL [estradioL (Once Weekly) 0.05 mg Patch] 1 patch TRANSDERM SA Testosterone Micro Pwd 1 applic TOPICAL DAILY Ibuprofen [Motrin Ib] 200 mg PO Q8H PRN PRN Reason: Pain Or Fever > 100.5 traZODone HCL [Desyrel] 100 mg PO HS Levothyroxine Sodium [Tirosint] 137 mcg PO DAILY ALPRAZolam [Xanax] 0.25 mg PO DAILY PRN PRN Reason: Anxiety Discharge Medication List ALPRAZolam [Xanax] 0.25 mg PO DAILY PRN 11/09/21 [History] Ibuprofen [Motrin Ib] 200 mg PO Q8H PRN 11/09/21 [History] LORazepam [Ativan] 0.25 mg PO ONCE PRN 11/09/21 [History] Levothyroxine Sodium [Tirosint] 137 mcg PO DAILY 11/09/21 [History] Testosterone Micro Pwd 1 applic TOPICAL DAILY 11/09/21 [History] estradioL [estradioL (Once Weekly) 0.05 mg Patch] 1 patch TRANSDERM SA 11/09/21 [History] lamoTRIgine [LaMICtal] 25 mg PO DAILY 11/09/21 [History] traZODone HCL [Desyrel] 100 mg PO HS 11/09/21 [History]
--- NOTE | 2021-11-11 14:43 | CT ---
EXAMINATION TYPE: CT brain wo con CT DLP: 1088.4 mGycm, Automated exposure control for dose reduction was used. DATE OF EXAM: 11/11/2021 2:11 PM COMPARISON: None. CLINICAL INDICATION:Female, 36 years old with history of seizure TECHNIQUE: Brain: Multiple axial CT images of the brain were obtained without IV contrast. Coronal and sagittal reformats reviewed. FINDINGS: Brain: Extra-axial spaces: No abnormal extra-axial fluid collections. Ventricular system: Within normal limits Cerebral parenchyma: No acute intraparenchymal hemorrhage or mass effect. The toribio-white junction is well differentiated. Cerebellum: Unremarkable. Mass effect: No evidence of midline shift. Intracranial vasculature: unremarkable Soft tissues: Normal. Calvarium/osseous structures: No depressed skull fracture. Paranasal sinuses and mastoid air cells: Clear Visualized orbits: Orbital contents are intact. IMPRESSION: No acute intracranial process.
[2021-11-11] MEDS ORDERED: ESTRADIOL TRANSDERM SCH (18:00)
--- NOTE | 2021-11-11 18:47 | P.CNNES ---
History of Present Illness Consult date: 11/11/21 Requesting physician: Radha Adam Reason for Consult: Seizure History of Present Illness: Patient is a 36-year-old female initially admitted to mental health unit yesterday secondary to aggressive behavior. Today a rapid response team was activated in the mental health unit as patient was having seizure-like activity. She was having uncontrolled body movements and shaking activity every several minutes but was fully awake and oriented with these episodes. She was given 2 doses of 1 mg IV Ativan for a total of 2 mg. She had another episode of shaking but again with fully awake during the episode. She was given 1 dose of Haldol injection 5 mg IM. She was transferred to ICU for stepdown overflow. Patient arrived to this unit at 10:55 AM. Per nursing report, she has not had any more seizure like spells since arrival to this unit. Patient tells me that she feels like she was in a "thyroid storm". She believes that she may be having Lyme disease, or may be having lupus (because she is having the brain fog". She says that she has hired a remote was thyroid disease and she believes that she is having some autoimmune disorder going on. Patient states that she has been bit by tics "years and years and years ago". On asking about seizures, patient states that for the past 1 month she has been having "little bitty ones", which she describes as "memory fog", blacking out, about once a day, been going on for last 1 month. She does not know how long each blackout lasts. Patient says that once she was sitting on the couch and then she seized up. When she woke up, she was having "demon on the chest" or a "sleep paralysis". Patient states that today while she was in the psych unit, she felt she had an anxiety attack, almost as if she was having "thyroid storm". She got panicky, and then seized up. There was no tongue bite or loss of control of urine. CT head on my review showed no acute intracranial process. Visualized paranasal sinuses are clear. Official report is pending. Patient's blood tests from 11/09/2021 shows normal CBC, CMP, hemoglobin A1c 5.2, and lipid panel with cho lesterol 175 LDL 103, HDL 58 and triglycerides 39.4. TSH is normal. UA negative, urine drug screen negative. Thyroglobulin antibody elevated 197/114. Coronal virus PCR negative. Patient's home medications listed as Lamictal 25 mg daily, lorazepam 0.25 mg when necessary, estradiol patch, ibuprofen, trazodone 100 mg at bedtime, levothyroxine and Xanax 0.25 mg daily when necessary. Patient states that she lives with her parents. She has history of hysterectomy. Patient states that she smokes one pack per day for last 10 years. She drinks alcohol little. She does little of mushrooms which she does once a month for last couple years. She states she did do mushrooms about a week ago. Patient states that she smokes pot very occasionally, and she did it yesterday. Review of Systems As mentioned above in HPI in detail. All other review of systems reviewed, and noncontributory except as mentioned in HPI. Past Medical History Past Medical History: No Reported History Additional Past Medical History / Comment(s): Anxiety, major depression. Bipolar disorder. Thyroid disorder. Tobacco use disorder History of Any Multi-Drug Resistant Organisms: None Reported Past Surgical History: Hysterectomy Additional Past Surgical History / Comment(s): hormone replacement Past Anesthesia/Blood Transfusion Reactions: No Reported Reaction Past Psychological History: Bipolar, Panic Disorder, PTSD Smoking Status: Current every day smoker Past Alcohol Use History: Daily Past Drug Use History: Marijuana Medications and Allergies Home Medications Medication Instructions Recorded Confirmed Type ALPRAZolam [Xanax] 0.25 mg PO DAILY PRN 11/09/21 11/11/21 History Ibuprofen [Motrin Ib] 200 mg PO Q8H PRN 11/09/21 11/11/21 History LORazepam [Ativan] 0.25 mg PO ONCE PRN 11/09/21 11/11/21 History Levothyroxine Sodium [Tirosint] 137 mcg PO DAILY 11/09/21 11/11/21 History Testosterone Micro Pwd 1 applic TOPICAL DAILY 11/09/21 11/11/21 History estradioL [estradioL (Once Weekly) 1 patch TRANSDERM SA 11/09/21 11/11/21 History 0.05 mg Patch] lamoTRIgine [LaMICtal] 25 mg PO DAILY 11/09/21 11/11/21 History traZODone HCL [Desyrel] 100 mg PO HS 11/09/21 11/11/21 History Allergies Allergy/AdvReac Type Severity Reaction Status Date / Time No Known Allergies Allergy Verified 11/11/21 11:56 Physical Examination - Vital Signs Vital Signs: Vital Signs Pulse Ox 11/11/21 11:00 95 Intake and Output 11/10/21 11/11/21 11/11/21 22:59 06:59 14:59 Other: Weight 59.874 kg Patient is a young female, in no acute distress. Patient is alert awake oriented to time place and person. Speech and language functions are normal. Attention, concentration and fund of knowledge is adequate. On cranial nerve examination, pupils are round and reacting to light, visual dueñas are full on confrontation, with no neglect on double simultaneous stimulation. Her extraocular muscles are intact with no nystagmus. Face is symmetric, tongue protrudes to the midline. Palatal elevation and sensation normal, hearing and shoulder shrug normal, facial sensation normal. Shoulder shrug normal. On muscle strength testing, there is no pronator drift and the strength is normal in arms and legs distally and proximally. Deep tendon reflexes are symmetric, 1+ to 2+ and plantars downgoing. Sensory to touch is equal with no neglect. Cerebellar function showed no ataxia for [id number] testing. No dysdiadochokinesia. Tone and bulk of muscles normal. Gait not checked. On general examination, there is no carotid bruit or murmur, S1-S2 audible. Abdomen is soft nontender. No organomegaly, bowel sounds present. Chest is clear. Peripheral pulses are present. No edema. Results - Laboratory Findings CBC and BMP: 11/12/21 05:56 11/12/21 05:56 Assessment and Plan Assessment: * Seizure-like activity, suspect nonepileptic based upon clinical description of the seizures, less likely epileptic seizure. Rule out substance withdrawal. * Anxiety, panic attacks. * Thyroid disorder, with elevated thyroglobulin and TPO antibodies. * Tobacco use * Substance abuse Plan: * EEG was performed today, which is significantly technically limited due to presence of constant 60 hertz interference seen throughout the study, mainly involving the occipital electrodes. No obvious epileptiform activity was seen. If these seizure-like episodes persist, then may consider a prolonged 2.5 hours EEG. * Increase Lamictal to 25 mg twice a day. * Psychiatry also following the patient for aggressive behavior. * Would defer IM for abnormal thyroid antibodies. * Neurology will follow. * Thank you for the consult.
[2021-11-11] MEDS: lamoTRIgine 25 MG TAB PO SCH (20:18)
[2021-11-11] MEDS ORDERED: traZODone HCL 100 MG TAB PO SCH (21:00)
--- NOTE | 2021-11-12 00:23 | EEG ---
ELECTROENCEPHALOGRAM REPORT PREAMBLE: This is a 36-year-old female who was in the mental health unit, where she had some seizure-like activity. This study is performed to evaluate for any epileptiform activity. EEG FINDINGS: This is a 21-channel digital EEG recorded with video component, utilizing 10/20 international system with referential and bipolar montages. The study is technically limited because of significant 60 Hz cycle interference seen during most of the study. High filters were used. The recording consists of somewhat suppressed background with some fast frequency beta activity intermixed with some myogenic activity seen in bihemispheric region. 60 Hz cycle interference was present during most of the study involving bilateral occipital regions. A photic driving response was not clearly seen. Different stages of sleep were not seen. No focal or generalized epileptiform activity was seen. IMPRESSION: This is a technically limited study because of significant electrical 60 Hz interference artifact involving bilateral occipital regions throughout the study. Otherwise, the recording reveals somewhat suppressed background, this is suggestive of medication effect. No epileptiform activity was seen. Intermittently, well-formed background was seen during the study. Consider repeat or a prolonged study if clinically indicated. MMODL / IJN: [id number] / [facility]ITALShane
[2021-11-12] MEDS: ALPRAZolam 0.25 MG TAB PO PRN ×3 (00:26→13:03)
[2021-11-12 06:22] LABS: Basophils # (A) 0.1 k/uL (0-0.2); Basophils % (A) 1 %; Eosinophils # (A) 0.1 k/uL (0-0.7); Eosinophils % (A) 2 %; HCT 41.6 % (34.0-46.0); HGB 13.7 gm/dL (11.4-16.0); Lymphocytes # (A) 2.2 k/uL (1.0-4.8); Lymphocytes % (A) 35 %; MCH 31.3 pg (25.0-35.0); MCHC 32.8 g/dL (31.0-37.0); MCV 95.4 fL (80.0-100.0); Monocytes # (A) 0.3 k/uL (0-1.0); Monocytes % (A) 4 %; Neutrophils # (A) 3.6 k/uL (1.3-7.7); Neutrophils % (A) 56 %; Platelet Count 195 k/uL (150-450); RBC 4.36 m/uL (3.80-5.40); RDW 12.8 % (11.5-15.5); WBC 6.5 k/uL (3.8-10.6)
[2021-11-12] MEDS ORDERED: LEVOTHYROXINE 137 MCG TAB PO SCH (06:30)
[2021-11-12 06:35] LABS: African American GFR (CKD) >90 (>60 ml/min/1.73 sqM); Anion Gap 4 mmol/L; Blood Urea Nitrogen 10 mg/dL (7-17); Calcium 9.3 mg/dL (8.4-10.2); Carbon Dioxide 27 mmol/L (22-30); Chloride 108 mmol/L (98-107); Glucose 112 mg/dL (74-99); Non-African American GFR(CKD) 87 (>60 ml/min/1.73 sqM); Potassium 4.1 mmol/L (3.5-5.1); Sodium 139 mmol/L (137-145)
[2021-11-12] MEDS: lamoTRIgine 25 MG TAB PO SCH (08:04)
[2021-11-12] MEDS ORDERED: lamoTRIgine 25 MG TAB PO SCH (09:00)
[2021-11-12] MEDS ORDERED: TESTOSTERONE TOPICAL SCH (09:00)
[2021-11-12] MEDS ORDERED: NICOTINE 21MG/24HR PATCH TRANSDERM SCH (09:00)
[2021-11-12 09:10] VITALS: BP 103/66; PULSE 62; RESP 12; TEMP 97.9
[2021-11-12] MEDS ORDERED: LORazepam 0.5 MG TAB PO PRN (10:07)
[2021-11-12 12:35] LABS: Glucose,Whole Blood 117 mg/dL (70-110)
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
--- NOTE | 2021-11-12 16:10 | P.DS ---
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 She had a rapid response called secondary to possible seizure-like activity. However patient remained awake and oriented during the entire episode. She did require multiple doses of benzodiazepines. She was subsequently admitted to the medical floor. Her initial EEG was of poor quality and it was difficult to determine if there was any epileptiform activity. She was seen by neurology. Her EEG was repeated which was normal. She was cleared by neurology for discharge. She was reevaluated by psychiatry and was determined to no longer need inpatient mental health unit and was appropriate for outpatient follow-up. Patient was subsequently discharged home. She was verbally told that she should not operate a motor vehicle for 6 months. We discussed that her TSH is a low normal and she should consider decreasing her thyroid supplementation. She will follow up with her primary care physician Dr. Eisenberg to discuss this further. She will also follow-up with outpatient mental health services. She was given a 2 week prescription of her trazodone. Her Lamictal was increased to 25 mg twice daily. She was discharged home in stable condition. Patient seen and examined at bedside. She reports that she is feeling much better today. No additional seizure-like activity. Feeling well and wants to go home. The long discussion about her thyroid hormone levels and she is aware of the importance of follow-up. Vital signs reviewed and stable. General: nontoxic, no distress, appears at stated age Derm: warm, dry Head: atraumatic, normocephalic, symmetric Eyes: EOMI, no lid lag, anicteric sclera Mouth: no lip lesion, mucus membranes moist Cardiovascular: S1S2 reg, no murmur, positive posterior tibial pulse bilateral, Lungs: CTA bilateral, no rhonchi, no rales , no accessory muscle use Abdominal: soft, nontender to palpation, no guarding, no appreciable organomegaly Ext: no gross muscle atrophy, no edema, no contractures Neuro: CN II-XI grossly intact, no focal neuro deficits Psych: Alert, oriented, appropriate affect A total of 45 minutes of time were spent preparing this complex discharge summary. Patient was discharged on 11-12-21. Patient Condition at Discharge: Stable Plan - Discharge Summary Discharge Rx Participant: No New Discharge Prescriptions: New lamoTRIgine [LaMICtal] 25 mg PO BID #60 tab Continue LORazepam [Ativan] 0.25 mg PO ONCE PRN PRN Reason: Anxiety estradioL [estradioL (Once Weekly) 0.05 mg Patch] 1 patch TRANSDERM SA Testosterone Micro Pwd 1 applic TOPICAL DAILY Ibuprofen [Motrin Ib] 200 mg PO Q8H PRN PRN Reason: Pain Or Fever > 100.5 Levothyroxine Sodium [Tirosint] 137 mcg PO DAILY ALPRAZolam [Xanax] 0.25 mg PO DAILY PRN PRN Reason: Anxiety traZODone HCL [Desyrel] 100 mg PO HS #15 tab Discontinued lamoTRIgine [LaMICtal] 25 mg PO DAILY Discharge Medication List ALPRAZolam [Xanax] 0.25 mg PO DAILY PRN 11/09/21 [History] Ibuprofen [Motrin Ib] 200 mg PO Q8H PRN 11/09/21 [History] LORazepam [Ativan] 0.25 mg PO ONCE PRN 11/09/21 [History] Levothyroxine Sodium [Tirosint] 137 mcg PO DAILY 11/09/21 [History] Testosterone Micro Pwd 1 applic TOPICAL DAILY 11/09/21 [History] estradioL [estradioL (Once Weekly) 0.05 mg Patch] 1 patch TRANSDERM SA 11/09/21 [History] lamoTRIgine [LaMICtal] 25 mg PO BID #60 tab 11/12/21 [Rx] traZODone HCL [Desyrel] 100 mg PO HS #15 tab 11/12/21 [Rx] Follow up Appointment(s)/Referral(s): Esther Eisenberg MD [REFERRING] - 1 Week Patient Instructions/Handouts: Mood Disorders (DC), Brief Psychotic Disorder (DC) Activity/Diet/Wound Care/Special Instructions: Activity: as tolerated Diet: regular Special Instructions: Please ensure that your follow-up closely on your thyroid testing with Dr. Eisenberg Please follow-up with outpatient psychiatry. Discharge/Stand Alone Forms: Outpatient Counseling, Inp Substance Abuse Faci lities Discharge Disposition: HOME SELF-CARE
--- NOTE | 2021-11-12 23:45 | EEG ---
ELECTROENCEPHALOGRAM REPORT PREAMBLE: This is a 36-year-old female with seizure-like spells. The patient had an EEG performed yesterday, which was technically very limited. This is an EEG performed for a followup. EEG FINDINGS: This is a 21-channel digital EEG recorded with video component, utilizing 10/20 international system with referential and bipolar montages. Background consists of well-developed, well-regulated moderate voltage activity in 10 Hz alpha. Background is posterior-dominant and reactive to eye opening and closing. Hyperventilation revealed no abnormalities. Photic driving response was seen with some flash frequencies. Drowsiness was seen with appearance of bilaterally symmetric theta frequency rhythm. Deeper stages of sleep were not attained. No focal or generalized epileptiform activity was seen. IMPRESSION: This is a normal awake and drowsy EEG. No focal, lateralized or epileptiform activity was seen. MMBISHOPL / IJN: [id number] /
--- NOTE | 2021-11-13 08:31 | P.PN ---
Subjective Progress Note Date: 11/12/21 Patient was seen for a follow-up. No further seizures type spells reported. Patient denies any headache or any neurological symptoms. Objective - Vital Signs Vital signs: Vital Signs Temp 97.9 F 11/12/21 08:00 Pulse 62 11/12/21 08:00 Resp 12 11/12/21 08:00 BP 103/66 11/12/21 08:00 Pulse Ox 99 11/12/21 08:00 FiO2 Intake & Output 11/12/21 11/13/21 11/13/21 18:59 06:59 18:59 Other: Voiding Method Toilet - Exam Mental status is normal. Examination nonfocal. - Labs CBC & Chem 7: 11/12/21 05:56 11/12/21 05:56 Labs: Abnormal Lab Results - Last 24 Hours (Table) 11/12/21 Range/Units 12:33 POC Glucose (mg/dL) 117 H (70-110) mg/dL Assessment and Plan Assessment: * Seizure-like activity, suspect nonepileptic based upon clinical description of the seizures, less likely epileptic seizure. Rule out substance withdrawal. * Anxiety, panic attacks. * Thyroid disorder, with elevated thyroglobulin and TPO antibodies. * Tobacco use * Substance abuse Plan: * Repeat EEG performed today was completely normal. No epileptiform activity was seen. * Continue Lamictal to 25 mg twice a day. * Psychiatry also following the patient for aggressive behavior. * Would defer IM for abnormal thyroid antibodies. * Neurologically clear for transfer to psychiatry unit.
== END 2021-11-12 16:06 | disposition home or self-care (01) | DRG 880 ==
LOC: 2SICU 10:55
PROVIDERS: ADMIT Student in an Organized Health Care Education/Training Program; ATTEND Student in an Organized Health Care Education/Training Program
PROC: 4A00X4Z Measurement of Central Nervous Electrical Activity, External Approach (ICD-10-PCS; principal; 2021-11-11)
DX: F44.5 Conversion disorder with seizures or convulsions (principal); F31.9 Bipolar disorder, unspecified; R45.1 Restlessness and agitation; E06.3 Autoimmune thyroiditis; E03.9 Hypothyroidism, unspecified; F41.0 Panic disorder [episodic paroxysmal anxiety]; F43.10 Post-traumatic stress disorder, unspecified; F17.210 Nicotine dependence, cigarettes, uncomplicated; Z90.710 Acquired absence of both cervix and uterus; Z79.899 Other long term (current) drug therapy; Z79.890 Hormone replacement therapy; Z20.822 Contact with and (suspected) exposure to COVID-19; Z87.19 Personal history of other diseases of the digestive system; Z86.16 Personal history of COVID-19
CPT/HCPCS: 70450; 80048; 85025; 87635; 95816